=== PATIENT | female | born 1930 | race Caucasian/White ===

== ENCOUNTER → 2017-01-21 | Outpatient (CLI) | payer MEDICARE | END | disposition home or self-care (01) | LOC: CFH 15:17 | PROVIDERS: ATTEND Specialist | DX: C54.1 Malignant neoplasm of endometrium (principal); M41.86 Other forms of scoliosis, lumbar region; M51.36 Other intervertebral disc degeneration, lumbar region; I51.7 Cardiomegaly; M95.4 Acquired deformity of chest and rib | CPT/HCPCS: 74177; 82565 ==

== ENCOUNTER → 2017-01-28 | Outpatient (CLI) | payer MEDICARE ==
[~2017-01-28] MED LIST: CALC3.7S5 INH; CALCIUM COMPLETE; CELEXA; CITA10TA8 PO; DIGO125T PO; DIGOXIN; FAMO-79 PO; LOZOL; MULT400C3 PO; NATURAL TEARS; NATURAL TEARS EACHEYE; TRAM50TA2 PO; TRAMADOL; VITAMIN D; Vitamin D PO; [UNRECOGNIZED DRUG - OTHER]; [UNRECOGNIZED DRUG - OTHER] TP; lozol PO
[2017-01-28 14:34] LABS: HEMATOCRIT 43.8 % (34.6-47.8); HEMOGLOBIN 14.3 g/dL (11.7-16.4); WHITE BLOOD COUNT 6.1 x10^3/uL (3.4-10)
[2017-01-28 14:43] LABS: BLOOD UREA NITROGEN 10 mg/dL (7-18)
[2017-01-28 14:47] LABS: ASPARTATE AMINO TRANSFERASE 16 U/L (15-37)
== END | disposition home or self-care (01) ==
LOC: STAR 12:42
PROVIDERS: ATTEND Specialist
DX: Z01.818 Encounter for other preprocedural examination (principal); R94.31 Abnormal electrocardiogram [ECG] [EKG]; I51.7 Cardiomegaly; Q25.46 Tortuous aortic arch; M95.4 Acquired deformity of chest and rib; R79.1 Abnormal coagulation profile
CPT/HCPCS: 36415; 71020; 80053; 85025; 85610; 85730; 86304; 93005

== ENCOUNTER 2017-02-03 05:40 | Inpatient (IN) | payer MEDICARE ==
[~2017-02-03] VITALS: Ht 154.9 cm; Wt 52.3 kg
[2017-02-03 06:30] VITALS: BP 110/76
[2017-02-03] MEDS ORDERED: OMEP-110 PO (06:30)
[2017-02-03] MEDS ORDERED: LIDOCAINE 1%, 2ML SQ PRN (06:30)
[2017-02-03] MEDS ORDERED: EPINEPHRINE 1 MG/ML, 1ML ONE (06:52)
[2017-02-03] MEDS ORDERED: BUPIVACAINE/PF 0.25% ONE (06:52)
[2017-02-03] MEDS ORDERED: HEPARIN 1,000 UNITS/ML, 10ML ONE (06:52)
[2017-02-03] MEDS ORDERED: PNEUMOCOCCAL 23 VACCINE IM-VACC ONE (07:00)
[2017-02-03] MEDS: LACTATED RINGERS 1,000 ML IV SCH ×3 (07:13→12:20)
[2017-02-03] MEDS ORDERED: KETAMINE 10 MG/ML, 20ML ONE ×2 (07:30→07:38)
[2017-02-03] MEDS ORDERED: FENTANYL PF 100 MCG/2ML ONE ×3 (07:30→10:57)
[2017-02-03] MEDS ORDERED: GLYCOPYRROLATE 0.2MG/1ML ONE (07:38)
[2017-02-03] MEDS ORDERED: EPHEDRINE 50 MG/ML, 1ML ONE (07:38)
[2017-02-03] MEDS ORDERED: NEOSTIGMINE 1 MG/ML, 10ML ONE (07:38)
[2017-02-03] MEDS ORDERED: ONDANSETRON 2MG/ML, 2ML ONE (07:38)
[2017-02-03] MEDS ORDERED: ESMOLOL 100 MG/10 ML ONE (07:38)
[2017-02-03] MEDS ORDERED: DEXAMETHASONE 4 MG/ML, 1ML ONE (07:38)
[2017-02-03] MEDS ORDERED: CEFOTETAN 1 GM ONE (07:38)
[2017-02-03] MEDS ORDERED: METOPROLOL 1 MG/ML, 5ML ONE (07:38)
[2017-02-03] MEDS ORDERED: PROPOFOL 10 MG/ML, 20ML ONE (07:38)
[2017-02-03] MEDS ORDERED: ROCURONIUM 10 MG/ML ONE (07:38)
[2017-02-03] MEDS ORDERED: FENTANYL PF 100 MCG/2ML IV PRN (09:00)
[2017-02-03] MEDS ORDERED: OXYcodone 5 MG/5 ML ORAL.SOL UDC PO PRN (09:00)
[2017-02-03] MEDS ORDERED: PROMETHAZINE 25 MG/ML, 1ML IV PRN (09:00)
[2017-02-03] MEDS ORDERED: morphine SULFATE 10 MG/ML, 1ML IV PRN (09:00)
[2017-02-03] MEDS ORDERED: ACETAMINOPHEN 325 MG TABLET PO PRN (09:00)
[2017-02-03] MEDS ORDERED: LABETALOL 5MG/ML, 20ML IV PRN (09:00)
[2017-02-03] MEDS ORDERED: morphine SULFATE 10 MG/ML, 1ML IVPush PRN (10:00)
[2017-02-03] MEDS ORDERED: ONDANSETRON 2MG/ML, 2ML IVPush PRN (10:00)
[2017-02-03] MEDS ORDERED: ACETAMINOPHEN 650 MG/20.3 ML UDC ONE (10:32)
[2017-02-03] MEDS ORDERED: OXYcodone 5 MG/5 ML ORAL.SOL UDC ONE (10:58)
[2017-02-03] MEDS ORDERED: IBUPROFEN 600 MG TABLET PO SCH (11:00)
[2017-02-03] MEDS: D5%-0.45NACL+KCL 20MEQ 1,000 ML IV SCH ×2 (12:01→21:05)
[2017-02-03] MEDS: OXYcodone/APAP 5/325MG TABLET PO PRN ×2 (12:19→18:03)
[2017-02-03 12:30] VITALS: BP 105/55
[2017-02-03 13:04] VITALS: BP 105/55
[2017-02-03] MEDS: IBUPROFEN 200 MG TABLET PO SCH (16:42)
[2017-02-03 18:26] VITALS: BP 99/61
[2017-02-04] VITALS (8 sets, daily range): BP systolic 80–150; BP diastolic 52–88
[2017-02-04] MEDS: IBUPROFEN 200 MG TABLET PO SCH ×4 (05:57→20:57)
[2017-02-04 07:30] LABS: HEMATOCRIT 35.8 % (34.6-47.8); HEMOGLOBIN 11.6 g/dL (11.7-16.4); WHITE BLOOD COUNT 7.9 x10^3/uL (3.4-10)
[2017-02-04 07:41] LABS: BLOOD UREA NITROGEN 9 mg/dL (7-18)
[2017-02-04] MEDS: D5%-0.45NACL+KCL 20MEQ 1,000 ML IV SCH ×2 (08:16→20:57)
[2017-02-04] MEDS: DIGOXIN 0.125 MG TABLET PO SCH (08:17)
[2017-02-04] MEDS: METOLAZONE 10 MG TABLET PO SCH ×3 (09:30→20:58)
[2017-02-04] MEDS: METOCLOPRAMIDE 5 MG/ML, 2ML IV SCH ×3 (11:00→23:34)
[2017-02-05] MEDS: METOLAZONE 10 MG TABLET PO SCH ×2 (03:30→09:28)
[2017-02-05] MEDS: METOCLOPRAMIDE 5 MG/ML, 2ML IV SCH (06:10)
[2017-02-05] MEDS: IBUPROFEN 200 MG TABLET PO SCH ×4 (06:15→20:08)
[2017-02-05 08:17] LABS: HEMATOCRIT 36.6 % (34.6-47.8); HEMOGLOBIN 12.1 g/dL (11.7-16.4); WHITE BLOOD COUNT 6.2 x10^3/uL (3.4-10)
[2017-02-05 08:18] LABS: BLOOD UREA NITROGEN 6 mg/dL (7-18)
[2017-02-05] MEDS: D5%-0.45NACL+KCL 20MEQ 1,000 ML IV SCH (09:20)
[2017-02-05] MEDS: APIXABAN 2.5 MG TABLET PO SCH ×2 (10:00→20:08)
[2017-02-05] MEDS: DIGOXIN 0.125 MG TABLET PO SCH (10:00)
[2017-02-05 13:45] VITALS: BP 104/60
[2017-02-05 20:05] VITALS: BP 107/68
[2017-02-05] MEDS ORDERED: APIXABAN 2.5 MG TABLET PO SCH (21:00)
[2017-02-06 00:26] VITALS: BP 107/67
[2017-02-06] MEDS: IBUPROFEN 200 MG TABLET PO SCH (06:21)
[2017-02-06 08:03] VITALS: BP 117/78
[2017-02-06] MEDS: DIGOXIN 0.125 MG TABLET PO SCH (09:34)
[2017-02-06] MEDS: APIXABAN 2.5 MG TABLET PO SCH ×2 (09:34→20:21)
[2017-02-06] MEDS ORDERED: DIGOXIN 0.25 MG/ML, 2ML IVPush ONE (11:30)
[2017-02-06] MEDS: OXYcodone/APAP 5/325MG TABLET PO PRN ×2 (12:55→14:03)
[2017-02-06 17:18] VITALS: BP 105/65
[2017-02-06 19:40] VITALS: BP 103/65
[2017-02-07 00:44] VITALS: BP 121/79
[2017-02-07 04:51] LABS: HEMATOCRIT 38.7 % (34.6-47.8); HEMOGLOBIN 12.5 g/dL (11.7-16.4); WHITE BLOOD COUNT 6.7 x10^3/uL (3.4-10)
[2017-02-07 05:54] LABS: BLOOD UREA NITROGEN 11 mg/dL (7-18)
[2017-02-07 07:47] VITALS: BP 104/67
[2017-02-07] MEDS ORDERED: DIGOXIN 0.125 MG TABLET PO SCH (09:00)
[2017-02-07] MEDS: APIXABAN 2.5 MG TABLET PO SCH (09:34)
[2017-02-07 13:28] VITALS: BP 118/73
[2017-02-07] MEDS ORDERED: TRAM50TA2 PO (13:40)
[2017-02-07] MEDS ORDERED: lozol PO (13:41)
[2017-02-07] MEDS ORDERED: OXYC-302 PO (13:41)
[2017-02-07] MEDS ORDERED: METO10TA82 PO (13:42)
[2017-02-07] MEDS ORDERED: ONDA4TAB7 PO (13:43)
[2017-02-07] MEDS ORDERED: DIGO250T PO (13:44)
== END 2017-02-07 14:50 | disposition home or self-care (01) | DRG 737 ==
LOC: OUT 05:40 → ORIP 09:58 → 5SO 11:51 → DCLOUNGE 02-07 14:05
PROVIDERS: ADMIT Specialist; ATTEND Specialist
PROC: 0UTC4ZZ Resection of Cervix, Percutaneous Endoscopic Approach (ICD-10-PCS; 2017-02-03)
PROC: 0UT24ZZ Resection of Bilateral Ovaries, Percutaneous Endoscopic Approach (ICD-10-PCS; 2017-02-03)
PROC: 0UT74ZZ Resection of Bilateral Fallopian Tubes, Percutaneous Endoscopic Approach (ICD-10-PCS; 2017-02-03)
PROC: 8E0W4CZ Robotic Assisted Procedure of Trunk Region, Percutaneous Endoscopic Approach (ICD-10-PCS; 2017-02-03)
PROC: [UNRECOGNIZED PROCEDURE] (2017-02-03)
PROC: 0UT94ZZ Resection of Uterus, Percutaneous Endoscopic Approach (ICD-10-PCS; principal; 2017-02-03 07:30)
DX: C79.62 Secondary malignant neoplasm of left ovary (principal); C25.7 Malignant neoplasm of other parts of pancreas; I48.91 Unspecified atrial fibrillation; C26.9 Malignant neoplasm of ill-defined sites within the digestive system; E87.1 Hypo-osmolality and hyponatremia; D64.9 Anemia, unspecified; C44.92 Squamous cell carcinoma of skin, unspecified; E03.9 Hypothyroidism, unspecified; K21.9 Gastro-esophageal reflux disease without esophagitis; N83.9 Noninflammatory disorder of ovary, fallopian tube and broad ligament, unspecified; N95.0 Postmenopausal bleeding; Z85.828 Personal history of other malignant neoplasm of skin; Z79.01 Long term (current) use of anticoagulants
CPT/HCPCS: 36415; 80048; 80162; 83735; 85025; 86850; 86870; 86900; 86902; 86922; 86923; 88112; 88305; 88309; J0171; J1100; J1644; J2405; J2704; J2710; J3010; J3490; J1160; J2765; J3480; J7120; S0074

== ENCOUNTER → 2017-03-18 | Outpatient (CLI) | payer MEDICARE ==
[~2017-03-18] MED LIST changes: +DIGO250T PO; +METO10TA82 PO; +OMEP-110 PO; +ONDA4TAB7 PO; +OXYC-302 PO
== END | disposition home or self-care (01) ==
LOC: PETCFH 09:36
PROVIDERS: ATTEND Internal Medicine Hematology & Oncology
DX: M41.86 Other forms of scoliosis, lumbar region (principal); C18.9 Malignant neoplasm of colon, unspecified
CPT/HCPCS: 78306; A9503

== ENCOUNTER 2017-06-26 18:32 | Inpatient (IN) | payer MEDICARE ==
[~2017-06-26] VITALS: Ht 152.4 cm; Wt 52.3 kg
[2017-06-26] MEDS ORDERED: MAALOX/HYOSCYAMINE/LIDOCAINE 45 ML BTL ONE (19:22)
[2017-06-26] MEDS ORDERED: MAALOX/HYOSCYAMINE/LIDOCAINE 45 ML BTL PO ONE (19:30)
[2017-06-26] MEDS ORDERED: SODIUM CHLORIDE FLUSH 10ML SYR IVF ONE (19:30)
[2017-06-26 19:49] LABS: BASOPHILS # (AUTO) 0.01 x10^3/uL (0-0.1); BASOPHILS % (AUTO) 0 % (0-1); EOSINOPHILS # (AUTO) 0.14 x10^3/uL (0-0.4); EOSINOPHILS % (AUTO) 1 % (1-7); LYMPHOCYTES # (AUTO) 0.76 x10^3/uL (1-3.4); LYMPHOCYTES % (AUTO) 5 % (22-44); MD NO; MEAN CORPUSCULAR HEMOGLOBIN 30.8 pg (27.0-34.8); MEAN CORPUSCULAR HGB CONC 32.1 g/dL (32.4-35.8); MEAN CORPUSCULAR VOLUME 95.9 fL (80-100); MEAN PLATELET VOLUME 9.1 fL (7.4-10.4); MONOCYTES # (AUTO) 1.41 x10^3/uL (0.2-0.8); MONOCYTES % (AUTO) 10 % (2-9); NEUTROPHILS # (AUTO) 11.94 x10^3/uL (1.8-6.8); NEUTROPHILS % (AUTO) 84 % (42-75); PLATELET COUNT 147 x10^3/uL (130-400); RED BLOOD COUNT 4.45 x10^6/uL (3.82-5.3); RED CELL DISTRIBUTION WIDTH 14.7 % (9.6-15.2)
[2017-06-26 19:56] LABS: ALANINE AMINOTRANSFERASE 121 U/L (12-78); ALBUMIN 3.5 g/dL (3.4-5.0); ANION GAP 8 mmol/L (5-15); CALCIUM 8.9 mg/dL (8.5-10.1); CHLORIDE 98 mmol/L (98-107); CREATININE 0.66 mg/dL (0.55-1.02)
[2017-06-26 19:58] LABS: ALKALINE PHOSPHATASE 385 U/L (45-117); BILIRUBIN,TOTAL 1.3 mg/dL (0.2-1.0); TOTAL PROTEIN 7.6 g/dL (6.4-8.2)
[2017-06-26 20:19] LABS: INTERNATIONAL NORMALIZED RATIO 1.24 (0.93-1.1); PROTHROMBIN TIME 12.8 Seconds (9.6-11.5)
[2017-06-26 20:26] LABS: TROPONIN I 0.021 ng/mL (0.000-0.045)
[2017-06-26] MEDS ORDERED: OMNIPAQUE 350 MG/ML, 100ML BOTTLE ONE (21:01)
[2017-06-26] MEDS ORDERED: SODIUM CHLORIDE 0.9% 1,000 ML IV ONE (22:31)
[2017-06-26] MEDS ORDERED: APIX2.5T PO (22:44)
[2017-06-26] MEDS ORDERED: MORPHINE SULFATE 4 MG/ML, 1ML IVPush PRN (23:00)
[2017-06-26] MEDS ORDERED: ONDANSETRON 2MG/ML, 2ML IVPush PRN (23:00)
[2017-06-27] VITALS (9 sets, daily range): BP systolic 93–113; BP diastolic 55–72
[2017-06-27] MEDS ORDERED: POLYETHYLENE GLYCOL 17 GM PACKET PO PRN (01:00)
[2017-06-27] MEDS ORDERED: ENALAPRILAT 1.25 MG/ML, 2ML IVPush PRN (01:00)
[2017-06-27] MEDS ORDERED: METOCLOPRAMIDE 5 MG/ML, 2ML IVPush PRN (01:00)
[2017-06-27] MEDS ORDERED: ENOXAPARIN 40 MG/0.4 ML SQ SCH (01:00)
[2017-06-27] MEDS ORDERED: TEMAZEPAM 15 MG CAPSULE PO PRN (01:00)
[2017-06-27] MEDS ORDERED: ACETAMINOPHEN 325 MG TABLET PO PRN (01:00)
[2017-06-27] MEDS ORDERED: SIMETHICONE 125 MG CHEW TAB PO PRN (01:00)
[2017-06-27] MEDS ORDERED: DOCUSATE 100 MG CAPSULE PO PRN (01:00)
[2017-06-27] MEDS ORDERED: LOVENOX/APIXABAN MC SCH (07:30)
[2017-06-27] MEDS: PANTOPRAZOLE 20MG TABLET PO SCH ×2 (09:27→19:48)
[2017-06-27] MEDS: DIGOXIN 0.25 MG TABLET PO SCH (09:27)
[2017-06-27] MEDS: APIXABAN 2.5 MG TABLET PO SCH ×2 (09:31→19:48)
[2017-06-27 09:52] LABS: MICROSCOPIC NOT IND
[2017-06-27 09:55] LABS: CULTURE INDICATED? NO
[2017-06-27] MEDS: ONDANSETRON 2MG/ML, 2ML IVPush PRN (10:15)
[2017-06-27] MEDS ORDERED: HYDROcodone/APAP 5/325 TABLET PO PRN (11:00)
[2017-06-28 02:14] VITALS: BP 98/58
[2017-06-28 05:20] LABS: CHLORIDE 102 mmol/L (98-107)
[2017-06-28 05:28] LABS: BASOPHILS # (AUTO) 0.08 x10^3/uL (0-0.1); BASOPHILS % (AUTO) 1 % (0-1); EOSINOPHILS # (AUTO) 0.18 x10^3/uL (0-0.4); EOSINOPHILS % (AUTO) 2 % (1-7); LYMPHOCYTES # (AUTO) 0.62 x10^3/uL (1-3.4); LYMPHOCYTES % (AUTO) 6 % (22-44); MD NO; MEAN CORPUSCULAR HGB CONC 32.5 g/dL (32.4-35.8); MEAN CORPUSCULAR VOLUME 95.3 fL (80-100); MEAN PLATELET VOLUME 9.4 fL (7.4-10.4); MONOCYTES # (AUTO) 1.26 x10^3/uL (0.2-0.8); MONOCYTES % (AUTO) 13 % (2-9); NEUTROPHILS # (AUTO) 7.98 x10^3/uL (1.8-6.8); NEUTROPHILS % (AUTO) 79 % (42-75); PLATELET COUNT 116 x10^3/uL (130-400); RED BLOOD COUNT 3.88 x10^6/uL (3.82-5.3); RED CELL DISTRIBUTION WIDTH 14.6 % (9.6-15.2)
[2017-06-28 05:31] LABS: ALANINE AMINOTRANSFERASE 100 U/L (12-78); ALBUMIN 2.8 g/dL (3.4-5.0); ALKALINE PHOSPHATASE 301 U/L (45-117); ANION GAP 6 mmol/L (5-15); BILIRUBIN,TOTAL 1.2 mg/dL (0.2-1.0); CALCIUM 8.1 mg/dL (8.5-10.1); CREATININE 0.64 mg/dL (0.55-1.02)
[2017-06-28] MEDS: PANTOPRAZOLE 20MG TABLET PO SCH (07:30)
[2017-06-28 08:30] VITALS: BP 95/61
[2017-06-28] MEDS: DIGOXIN 0.25 MG TABLET PO SCH (10:05)
[2017-06-28] MEDS: APIXABAN 2.5 MG TABLET PO SCH (10:05)
[2017-06-28] MEDS: ONDANSETRON 2MG/ML, 2ML IVPush PRN (10:37)
== END 2017-06-28 15:20 | disposition home or self-care (01) | DRG 436 ==
LOC: ED 22:38 → EDIP 22:45 → 3NW 23:27
PROVIDERS: ADMIT Hospitalist; ATTEND Hospitalist
DX: C78.7 Secondary malignant neoplasm of liver and intrahepatic bile duct (principal); C25.9 Malignant neoplasm of pancreas, unspecified; D68.69 Other thrombophilia; I48.2 Chronic atrial fibrillation; F33.0 Major depressive disorder, recurrent, mild; K21.9 Gastro-esophageal reflux disease without esophagitis; M41.9 Scoliosis, unspecified; I48.91 Unspecified atrial fibrillation; D49.0 Neoplasm of unspecified behavior of digestive system; H40.9 Unspecified glaucoma; Z90.710 Acquired absence of both cervix and uterus; Z90.49 Acquired absence of other specified parts of digestive tract; Z86.73 Personal history of transient ischemic attack (TIA), and cerebral infarction without residual deficits; Z86.010 Personal history of colon polyps; Z85.828 Personal history of other malignant neoplasm of skin; Z80.41 Family history of malignant neoplasm of ovary; Z80.0 Family history of malignant neoplasm of digestive organs; Z79.899 Other long term (current) drug therapy; Z79.01 Long term (current) use of anticoagulants
CPT/HCPCS: 36415; 70450; 71046; 74177; 76700; 80053; 81003; 83690; 83735; 83880; 84100; 84484; 85025; 85610; 93306; 99285; J2405; Q9967